=== PATIENT | female | born 1950 | race Caucasian/White ===

== ENCOUNTER 2016-07-16 19:19 | Inpatient (IN) | payer OTHER ==
[~2016-07-16] VITALS: Ht 157.5 cm; Wt 92.0 kg
[~2016-07-16 19:19] MED LIST: ACTOS30 MG PO; ADULT LOW DOSE81 M1 PO; ADVAIR HFA120 INHAL1 IH; ADVAIR HFA120 INHALA IH; ALBUTEROL SULF8.5 GM IH; ALLOPURINOL100 MG PO; ASPIR 8181 M1 PO; ASPIR-LOW81 MG PO; ASPIRIN PO; ATARAX,VISTARIL25 MG PO; BACTRIM,SEPT1 TABLET PO; CARDIZEM CD,CA180 MG PO; CARDIZEM CD,CA300 MG PO; CARDIZEM CD180 MG PO; CARDIZEM30 MG PO; CARDIZEM60 MG PO; CARDIZEM90 MG PO; CEFTIN500 MG PO; CELEXA40 MG PO; CITALOPRAM HBR40 M1 PO; CITALOPRAM HBR40 MG PO; CLEOCIN300 MG PO; COL-RITE100 M1 PO; COLACE100 MG PO; CYANOCOBALAM1000 MCG PO; DAILY VITE1 EAC1 PO; DESYREL 150 MG150 MG PO; DESYREL300 MG PO; DIGITEK125 MC2 PO; DIGOXIN125 MCG PO; DIGOXIN250 MCG PO; DILTIAZEM HCL PO; DOCUSATE SODIU100 MG PO; DOCUSIL100 MG PO; ELIMITE 5% CREA60 GM TP; ESCITALOPRAM OX20 MG PO; FELDENE20 MG PO; FEOSOL325 MG PO; FEROSUL325 MG PO; FERROUS SULFAT325 MG PO; FUROSEMIDE20 MG PO; FUROSEMIDE40 MG PO; FUROSEMIDE80 MG PO; GABAPENTIN100 MG PO; GABAPENTIN300 MG PO; GLIPIZIDE XL10 MG PO; GLIPIZIDE10 MG PO; GLUCOPHAGE1000 MG PO; GLUCOTROL XL10 MG PO; INVOKANA100 MG PO; IRON325 M1 PO; IRON325 MG PO; JANUVIA100 MG PO; JANUVIA25 M1 PO; K-DUR10 MEQ PO; LAMISIL; LASIX20 MG PO; LASIX40 MG PO; LEVAQUIN500 MG PO; LEVEMIR FL100 UNIT/1 SC; LEVEMIR100 UNIT/2 SC; LEVO-T75 MCG PO; LEVOTHYROXINE50 MCG PO; LEVOTHYROXINE75 MCG PO; LEXAPRO20 MG PO; LIDODERM 5% P1 PATCH TD; LISINOPRIL2.5 MG PO; LISINOPRIL5 MG PO; LO-DOSE ASPIRIN81 M1 PO; LO-DOSE ASPIRIN81 M2 PO; LOPRESSOR25 MG PO; LOPRESSOR50 MG PO; LOW DOSE ASPIRI81 M1 PO; METFORMIN HCL1000 M1 PO; METFORMIN HCL1000 MG PO; METFORMIN HCL500 MG PO; METOPROLOL TAR100 MG PO; METOPROLOL TART PO; METOPROLOL TART25 MG PO; METOPROLOL TART50 MG PO; MOBIC15 MG PO; MONTELUKAST SOD10 MG PO; NEURONTIN100 MG PO; NEXIUM20 MG PO; NORCO 5/3251 TABLET PO; NOVOLOG MI100 UNIT/4 SC; NOVOLOG PE100 UNITS/ SC; PANTOPRAZOLE SO40 MG PO; PIROXICAM20 MG PO; PRADAXA150 MG PO; PRAVASTATIN SOD80 MG PO; PRINIVIL5 MG PO; PROVENTIL,2.5 MG/0.5 AEROSOL; PYRIDIUM100 MG PO; REVATIO20 MG PO; SENNA PLUS TAB1 EACH PO; SENNA8.6 MG PO; SILDENAFIL20 MG PO; SIMVASTATIN20 MG PO; SINGULAIR10 MG PO; STOOL SOFTENER100 MG PO; SYNTHROID50 MCG PO; SYNTHROID75 MCG PO; TAMIFLU75 MG PO; TRAMADOL HCL50 MG PO; TRAZODONE HCL150 MG PO; TRAZODONE HCL300 MG PO; TYLENOL EXTRA500 MG PO; TYLENOL REGULA325 MG PO; VALIUM2 MG PO; VENTOLIN HFA18 GM IH; ZESTRIL,PRINIV2.5 MG PO; ZESTRIL2.5 MG; ZESTRIL2.5 MG PO; ZOCOR20 MG PO; lisinopril PO
[2016-07-16 20:27] LABS: HEMATOCRIT 38.5 % (36.0-46.0); MCH 31.1 PG (29.0-34.0); MCHC 33.8 G/DL (30.0-36.0); MCV 92.1 FL (83-99); MEAN PLAT.VOLUME 10.9 uM^3 (9.5-12.4); PLATELET COUNT 240 K/uL (156-360); RBC DIS.WIDTH-CV 15.8 % (11.8-14.6); RBC DIS.WIDTH-SD 50.7 % (39-53); RED BLOOD COUNT 4.18 M/uL (3.80-5.20); WHITE BLOOD COUNT 12.2 K/uL (4.1-10.2)
[2016-07-16 20:27] LABS: POTASSIUM 4.7 mEq/L (3.7-5.4)
[2016-07-17 01:16] LABS: TROP-I INTERPRETATION NEGATIVE; TROPONIN-I < 0.01 ng/mL (0.0-0.30)
[2016-07-17 02:01] LABS: CHLORIDE 107 mEq/L (99-109); POTASSIUM 5.2 mEq/L (3.7-5.4); SODIUM 138 mEq/L (136-147)
[2016-07-17 02:03] LABS: GLUCOSE 191 mg/dL (70-99)
[2016-07-17 02:05] LABS: ANION GAP 11 MEQ/L (2-14); TOTAL BILIRUBIN 0.9 mg/dL (0.0-1.0)
[2016-07-17 02:07] LABS: ALKALINE PHOSPHATASE 69 IU/L (3-129); GFR ESTIMATE (CALCULATED) 53 mL/min/
[2016-07-17 02:08] LABS: UREA NITROGEN (BUN) 17 mg/dL (9-23)
[2016-07-17 02:16] LABS: DIGOXIN 1.4 ng/mL (0.8-2.0)
[2016-07-17 03:56] VITALS: BP 150/78
[2016-07-17 04:16] VITALS: BP 150/78
[2016-07-17] MEDS ORDERED: DIGOXIN250 MCG PO (05:18)
[2016-07-17] MEDS ORDERED: CARDIZEM CD,CA180 MG PO (05:18)
[2016-07-17] MEDS ORDERED: ASPIR-LOW81 MG PO (05:21)
[2016-07-17] MEDS ORDERED: MONTELUKAST SOD10 MG PO (05:21)
[2016-07-17] MEDS ORDERED: PRAVASTATIN SOD80 MG PO (05:22)
[2016-07-17] MEDS ORDERED: SENNA LAXATIVE8.6 MG PO (05:22)
[2016-07-17] MEDS ORDERED: PRADAXA150 MG PO (05:23)
[2016-07-17] MEDS ORDERED: PANTOPRAZOLE SO40 MG PO (05:23)
[2016-07-17] MEDS ORDERED: DESYREL 150 MG150 MG PO (05:24)
[2016-07-17] MEDS ORDERED: DOCUSATE SODIU100 MG PO (05:28)
[2016-07-17 08:07] LABS: POINT-OF-CARE METER ID UU14174216; POINT-OF-CARE USER ID NUTSLF44
[2016-07-17] MEDS ORDERED: GABAPENTIN100 MG PO (09:20)
[2016-07-17] MEDS ORDERED: LEVO-T50 MCG PO (09:21)
[2016-07-17 11:46] LABS: POINT-OF-CARE METER ID UU14174216; POINT-OF-CARE USER ID NUTSLF44
[2016-07-17 16:26] LABS: POINT-OF-CARE METER ID UU14174216
[2016-07-17 16:47] LABS: TROP-I INTERPRETATION NEGATIVE; TROPONIN-I < 0.01 ng/mL (0.0-0.30)
[2016-07-17 20:42] VITALS: BP 131/76
[2016-07-17 21:58] LABS: TROP-I INTERPRETATION NEGATIVE; TROPONIN-I < 0.01 ng/mL (0.0-0.30)
[2016-07-17 23:27] VITALS: BP 164/88
[2016-07-18 06:49] LABS: HEMATOCRIT 37.5 % (36.0-46.0); MCH 30.7 PG (29.0-34.0); MCHC 32.5 G/DL (30.0-36.0); MCV 94.2 FL (83-99); MEAN PLAT.VOLUME 10.7 uM^3 (9.5-12.4); PLATELET COUNT 203 K/uL (156-360); RBC DIS.WIDTH-CV 15.5 % (11.8-14.6); RBC DIS.WIDTH-SD 50.5 % (39-53); RED BLOOD COUNT 3.98 M/uL (3.80-5.20); WHITE BLOOD COUNT 10.7 K/uL (4.1-10.2)
[2016-07-18 07:11] LABS: TROP-I INTERPRETATION NEGATIVE; TROPONIN-I < 0.01 ng/mL (0.0-0.30)
[2016-07-18 07:36] LABS: ANION GAP 10 MEQ/L (2-14); CHLORIDE 97 MEQ/L (99-109); GFR ESTIMATE (CALCULATED) 40 mL/min/; GLUCOSE 261 mg/dL (70-99); POTASSIUM 4.3 MEQ/L (3.7-5.4); SAMPLE HEMOLYSIS CHECK 0; SAMPLE ICTERIC CHECK 0; SAMPLE LIPEMIA CHECK 0; SODIUM 136 MEQ/L (136-147); UREA NITROGEN (BUN) 22 mg/dL (9-23)
[2016-07-18 08:22] VITALS: BP 135/60
[2016-07-18 11:21] LABS: POINT-OF-CARE METER ID UU14174216
[2016-07-18 12:01] VITALS: BP 116/56
[2016-07-18 15:17] VITALS: BP 135/72
[2016-07-18 16:01] LABS: ADD MIUA? NO; BILIRUBIN NEGATIVE; BLOOD NEGATIVE; COLOR YELLOW ((YELLOW)); GLUCOSE (STRIP) 100; KETONES NEGATIVE; LEUKOCYTES NEGATIVE; NITRITE NEGATIVE; PROTEIN (STRIP) NEGATIVE; SPECIFIC GRAVITY 1.006 (1.000-1.030); UROBILINOGEN 0.2 MG/DL (0.2-1.0)
[2016-07-18 17:30] LABS: UCUL ADDED? NO
[2016-07-18 19:22] VITALS: BP 141/67
[2016-07-18 23:59] VITALS: BP 135/61
[2016-07-19 03:16] VITALS: BP 141/67
[2016-07-19 08:24] VITALS: BP 134/82
[2016-07-19 08:29] LABS: HEMATOCRIT 38.8 % (36.0-46.0); MCH 29.7 PG (29.0-34.0); MCHC 31.7 G/DL (30.0-36.0); MCV 93.7 FL (83-99); MEAN PLAT.VOLUME 10.7 uM^3 (9.5-12.4); PLATELET COUNT 222 K/uL (156-360); RBC DIS.WIDTH-CV 15.4 % (11.8-14.6); RED BLOOD COUNT 4.14 M/uL (3.80-5.20); WHITE BLOOD COUNT 11.1 K/uL (4.1-10.2)
[2016-07-19 08:52] LABS: ANION GAP 13 MEQ/L (2-14); CHLORIDE 92 MEQ/L (99-109); GFR ESTIMATE (CALCULATED) 48 mL/min/; GLUCOSE 256 mg/dL (70-99); SAMPLE HEMOLYSIS CHECK 0; SAMPLE ICTERIC CHECK 0; SAMPLE LIPEMIA CHECK 0; SODIUM 137 MEQ/L (136-147); UREA NITROGEN (BUN) 20 mg/dL (9-23)
[2016-07-19 11:31] VITALS: BP 157/60
[2016-07-19] MEDS ORDERED: ALLOPURINOL100 MG PO (12:05)
[2016-07-19] MEDS ORDERED: CEFDINIR300 MG PO (12:05)
[2016-07-19] MEDS ORDERED: FUROSEMIDE80 MG PO (12:05)
[2016-07-19 16:30] LABS: POINT-OF-CARE METER ID UU13113781
[2016-07-19 17:32] VITALS: BP 144/60
== END 2016-07-19 17:32 | disposition home health service (06) | DRG 190 ==
LOC: EME 19:19 → EDOF 23:57 → EME 23:57 → 4EAST 23:57 → EDOF 07-17 00:05 → 4EAST 07-17 03:44
PROVIDERS: Emergency Medicine; Hospitalist; Internal Medicine; Internal Medicine Cardiovascular Disease; Nurse Practitioner Adult Health; Physician Assistant
DX: J44.0 Chronic obstructive pulmonary disease with (acute) lower respiratory infection (principal); J18.9 Pneumonia, unspecified organism; J96.21 Acute and chronic respiratory failure with hypoxia; J98.11 Atelectasis; J44.1 Chronic obstructive pulmonary disease with (acute) exacerbation; I48.2 Chronic atrial fibrillation; I50.9 Heart failure, unspecified; Z99.81 Dependence on supplemental oxygen; I27.2 Other secondary pulmonary hypertension; Z95.2 Presence of prosthetic heart valve; E03.9 Hypothyroidism, unspecified; K21.9 Gastro-esophageal reflux disease without esophagitis; E11.65 Type 2 diabetes mellitus with hyperglycemia; E66.01 Morbid (severe) obesity due to excess calories; G47.33 Obstructive sleep apnea (adult) (pediatric); F31.9 Bipolar disorder, unspecified; I08.2 Rheumatic disorders of both aortic and tricuspid valves; Z68.37 Body mass index [BMI] 37.0-37.9, adult
CPT/HCPCS: 71020; 71250; 80047; 80048; 80053; 80162; 81003; 82948; 83880; 84484; 85027; 87040; 93005; 94640; 94640 76; 94760; 94799; 99202; 99281; 99285; J0456; J0692; J1815; J1940; J3370; J7050

== ENCOUNTER 2016-08-07 18:16 | Inpatient (IN) | payer OTHER ==
[~2016-08-07] VITALS: Ht 152.4 cm; Wt 83.5 kg
[~2016-08-07 18:16] MED LIST changes: +CEFDINIR300 MG PO; +LEVO-T50 MCG PO; +SENNA LAXATIVE8.6 MG PO
[2016-08-07 19:12] LABS: HEMATOCRIT 39.9 % (36.0-46.0); MCH 30.5 PG (29.0-34.0); MCHC 33.8 G/DL (30.0-36.0); MCV 90.3 FL (83-99); MEAN PLAT.VOLUME 11.6 uM^3 (9.5-12.4); PLATELET COUNT 196 K/uL (156-360); RBC DIS.WIDTH-SD 42.2 % (39-53); RED BLOOD COUNT 4.42 M/uL (3.80-5.20); WHITE BLOOD COUNT 10.8 K/uL (4.1-10.2)
[2016-08-07 19:20] LABS: CHLORIDE 94 mEq/L (99-109); POTASSIUM 3.8 mEq/L (3.7-5.4); SODIUM 135 mEq/L (136-147)
[2016-08-07 19:22] LABS: GLUCOSE 351 mg/dL (70-99)
[2016-08-07 19:23] LABS: ANION GAP 11 MEQ/L (2-14)
[2016-08-07 19:26] LABS: GFR ESTIMATE (CALCULATED) 40 mL/min/; UREA NITROGEN (BUN) 17 mg/dL (9-23)
[2016-08-07 19:50] LABS: ADD MIUA? NO; BILIRUBIN NEGATIVE; BLOOD NEGATIVE; COLOR YELLOW ((YELLOW)); GLUCOSE (STRIP) 250; KETONES NEGATIVE; LEUKOCYTES NEGATIVE; NITRITE NEGATIVE; PH, URINE 7.5 (5-8); PROTEIN (STRIP) NEGATIVE; SPECIFIC GRAVITY 1.013 (1.000-1.030); UCUL ADDED? NO; UROBILINOGEN 0.2 MG/DL (0.2-1.0)
[2016-08-08 01:09] VITALS: BP 138/63
[2016-08-08 03:24] LABS: HDL CHOLESTEROL 31 MG/DL (Desirable>=50); NON-HDL CHOLESTEROL 170 mg/dL (Desirable<160); TOTAL CHOLESTEROL 201 mg/dL (Desirable<200); TRIGLYCERIDES 554 MG/DL (Normal: <150)
[2016-08-08 03:59] LABS: DIGOXIN 0.4 ng/mL (0.8-2.0)
[2016-08-08 04:05] VITALS: BP 110/86
[2016-08-08 06:15] LABS: MCH 30.2 PG (29.0-34.0); MCHC 32.6 G/DL (30.0-36.0); MCV 92.5 FL (83-99); MEAN PLAT.VOLUME 12.1 uM^3 (9.5-12.4); PLATELET COUNT 206 K/uL (156-360); RBC DIS.WIDTH-CV 13.4 % (11.8-14.6); RBC DIS.WIDTH-SD 45.1 % (39-53); RED BLOOD COUNT 4.11 M/uL (3.80-5.20); WHITE BLOOD COUNT 10.5 K/uL (4.1-10.2)
[2016-08-08 06:43] LABS: ANION GAP 9 MEQ/L (2-14); CHLORIDE 93 MEQ/L (99-109); GFR ESTIMATE (CALCULATED) 53 mL/min/; GLUCOSE 368 mg/dL (70-99); POTASSIUM 3.7 MEQ/L (3.7-5.4); SAMPLE HEMOLYSIS CHECK 0; SAMPLE ICTERIC CHECK 0; SAMPLE LIPEMIA CHECK 0; SODIUM 134 MEQ/L (136-147); UREA NITROGEN (BUN) 17 mg/dL (9-23)
[2016-08-08 07:06] VITALS: BP 108/64
[2016-08-08 07:29] LABS: Estimated Average Glucose 255 mg/dL (70-123); HEMOGLOBIN A1c (GLYCOHEMOGLOB) 10.5 % HGB (Below 5.7)
[2016-08-08 11:22] VITALS: BP 127/68
[2016-08-08 15:23] VITALS: BP 115/57
[2016-08-08 19:23] VITALS: BP 110/67
[2016-08-09] VITALS (7 sets, daily range): BP systolic 104–128; BP diastolic 57–73
[2016-08-09] MEDS ORDERED: DIGITEK250 MC2 PO (09:29)
[2016-08-09] MEDS ORDERED: MONTELUKAST SOD10 MG PO (09:30)
[2016-08-09] MEDS ORDERED: ASPIR 8181 M1 PO (09:30)
[2016-08-09] MEDS ORDERED: CARDIZEM CD,CA180 MG PO (09:30)
[2016-08-09] MEDS ORDERED: PROTONIX40 MG PO (09:31)
[2016-08-09] MEDS ORDERED: PRAVASTATIN SOD80 MG PO (09:31)
[2016-08-09] MEDS ORDERED: DESYREL 150 MG150 MG PO (09:31)
[2016-08-09] MEDS ORDERED: COLACE100 MG PO (09:32)
[2016-08-09] MEDS ORDERED: GABAPENTIN100 MG PO (09:32)
[2016-08-09] MEDS ORDERED: SENNA8.6 MG PO (09:32)
[2016-08-09] MEDS ORDERED: FUROSEMIDE80 MG PO (09:33)
[2016-08-09] MEDS ORDERED: LEVO-T75 MCG PO (09:33)
[2016-08-09] MEDS ORDERED: ALLOPURINOL100 MG PO (09:34)
[2016-08-09] MEDS ORDERED: NOVOLOG PE100 UNITS/ SC (09:34)
[2016-08-09] MEDS ORDERED: LEVEMIR FL100 UNIT/1 SC (09:34)
[2016-08-10 03:41] VITALS: BP 121/70
[2016-08-10 07:37] VITALS: BP 127/65
[2016-08-10 16:20] VITALS: BP 132/66
[2016-08-11] VITALS: BP 131/67
[2016-08-11 08:32] VITALS: BP 126/63
[2016-08-11] MEDS ORDERED: LEVEMIR100 UNIT/2 SC (11:18)
[2016-08-11] MEDS ORDERED: PRADAXA150 MG PO (11:18)
[2016-08-11] MEDS ORDERED: FUROSEMIDE40 MG PO (11:18)
[2016-08-11 12:24] LABS: GLUCOSE 361 mg/dL (70-99)
== END 2016-08-11 14:03 | DRG 552 ==
LOC: EME → EDBD 18:16 → EME 18:16 → 5SOUTH 23:19 → EDOF 23:19 → 5SOUTH 08-08 00:35
PROVIDERS: Emergency Medicine; Hospitalist; Nurse Practitioner Adult Health
DX: M47.896 Other spondylosis, lumbar region (principal); I50.32 Chronic diastolic (congestive) heart failure; R42 Dizziness and giddiness; R26.2 Difficulty in walking, not elsewhere classified; S39.012A Strain of muscle, fascia and tendon of lower back, initial encounter; W19.XXXA Unspecified fall, initial encounter; I27.2 Other secondary pulmonary hypertension; J44.9 Chronic obstructive pulmonary disease, unspecified; R09.02 Hypoxemia; I10 Essential (primary) hypertension; I48.91 Unspecified atrial fibrillation; E03.9 Hypothyroidism, unspecified; E11.9 Type 2 diabetes mellitus without complications; F31.9 Bipolar disorder, unspecified; E66.9 Obesity, unspecified; Z99.81 Dependence on supplemental oxygen; Z68.35 Body mass index [BMI] 35.0-35.9, adult; Z95.2 Presence of prosthetic heart valve; Z79.01 Long term (current) use of anticoagulants; Z79.82 Long term (current) use of aspirin; Z88.0 Allergy status to penicillin; Z87.891 Personal history of nicotine dependence; Z88.5 Allergy status to narcotic agent
CPT/HCPCS: 70450; 70551; 71020; 72148; 80048; 80061; 80162; 81003; 82948; 83036; 84999; 85027; 93005; 94799; 99281; 99285; J1815

== ENCOUNTER 2016-08-24 22:42 | Inpatient (IN) | payer OTHER ==
[~2016-08-24] VITALS: Ht 157.5 cm; Wt 83.5 kg
[~2016-08-24 22:42] MED LIST changes: +DIGITEK250 MC2 PO; +PROTONIX40 MG PO
[2016-08-24 23:09] LABS: BASOPHIL COUNT 0.1 K/uL (0-0.1); EOSINOPHIL (%) 1.4 % (0-5); EOSINOPHIL COUNT 0.2 K/uL (0-0.3); HEMATOCRIT 41.7 % (36.0-46.0); IMMATURE GRANULOCYTE (%) 0.5 % (0.0-0.7); IMMATURE GRANULOCYTE COUNT 0.6 K/uL; LYMPHOCYTE COUNT 1.5 K/uL (1.0-2.8); MCH 30.9 PG (29.0-34.0); MCHC 34.5 G/DL (30.0-36.0); MCV 89.5 FL (83-99); MEAN PLAT.VOLUME 11.1 uM^3 (9.5-12.4); MONOCYTE (%) 7.4 % (3-12); MONOCYTE COUNT 0.9 K/uL (0-0.8); NEUTROPHIL (%) 77.6 % (45-76); NEUTROPHIL COUNT 9.5 K/uL (1.8-6.4); PLATELET COUNT 228 K/uL (156-360); RBC DIS.WIDTH-CV 13.4 % (11.8-14.6); RBC DIS.WIDTH-SD 42.9 % (39-53); RED BLOOD COUNT 4.66 M/uL (3.80-5.20); WHITE BLOOD COUNT 12.3 K/uL (4.1-10.2)
[2016-08-24 23:14] LABS: CHLORIDE 92 mEq/L (99-109); INTER. NORMALIZED RATIO 1.3; POTASSIUM 3.7 mEq/L (3.7-5.4); PROTHROMBIN TIME 13.4 (9.2-11.2); PTT 35.5 (25-32); SODIUM 137 mEq/L (136-147)
[2016-08-24 23:17] LABS: GLUCOSE 334 mg/dL (70-99)
[2016-08-24 23:18] LABS: ANION GAP 14 MEQ/L (2-14)
[2016-08-24 23:19] LABS: TOTAL BILIRUBIN 0.7 mg/dL (0.0-1.0)
[2016-08-24 23:20] LABS: ALKALINE PHOSPHATASE 97 IU/L (3-129); GFR ESTIMATE (CALCULATED) 37 mL/min/
[2016-08-24 23:21] LABS: UREA NITROGEN (BUN) 28 mg/dL (9-23)
[2016-08-24 23:24] LABS: LIPASE 21 U/L (1.0-51.0); TROP-I INTERPRETATION NEGATIVE; TROPONIN-I 0.04 ng/mL (0.0-0.30)
[2016-08-24 23:30] LABS: DIGOXIN 1.7 ng/mL (0.8-2.0)
[2016-08-25] MEDS ORDERED: GABAPENTIN300 MG PO (00:27)
[2016-08-25] MEDS ORDERED: FERROUS SULFAT325 MG PO (00:28)
[2016-08-25 01:10] LABS: CARBON DIOXIDE (BICARBONATE) 37.7 MEQ/L (20-31)
[2016-08-25 01:15] LABS: POINT-OF-CARE METER ID UU14100415
[2016-08-25 01:23] LABS: MAGNESIUM 1.6 mg/dL (1.3-2.7)
[2016-08-25 01:40] VITALS: BP 147/65
[2016-08-25 07:15] LABS: TROP-I INTERPRETATION NEGATIVE; TROPONIN-I 0.04 ng/mL (0.0-0.30)
[2016-08-25 10:26] LABS: HDL CHOLESTEROL 28 MG/DL (Desirable>=50); NON-HDL CHOLESTEROL 153 mg/dL (Desirable<160); TOTAL CHOLESTEROL 181 mg/dL (Desirable<200); TRIGLYCERIDES 542 MG/DL (Normal: <150)
[2016-08-25 11:15] VITALS: BP 124/56
[2016-08-25 12:23] LABS: TROP-I INTERPRETATION NEGATIVE; TROPONIN-I 0.03 ng/mL (0.0-0.30)
[2016-08-25 16:10] VITALS: BP 125/58
[2016-08-25 19:55] VITALS: BP 132/99
[2016-08-25 20:56] LABS: POINT-OF-CARE METER ID UU14174216
[2016-08-26] VITALS (7 sets, daily range): BP systolic 119–146; BP diastolic 58–74
[2016-08-26 07:00] LABS: EOSINOPHIL (%) 3.5 % (0-5); EOSINOPHIL COUNT 0.4 K/uL (0-0.3); HEMATOCRIT 38.2 % (36.0-46.0); IMMATURE GRANULOCYTE (%) 0.6 % (0.0-0.7); IMMATURE GRANULOCYTE COUNT 0.1 K/uL; LYMPHOCYTE COUNT 1.9 K/uL (1.0-2.8); MCH 31.5 PG (29.0-34.0); MCHC 34.3 G/DL (30.0-36.0); MCV 91.8 FL (83-99); MEAN PLAT.VOLUME 11.9 uM^3 (9.5-12.4); MONOCYTE (%) 7.5 % (3-12); MONOCYTE COUNT 0.8 K/uL (0-0.8); NEUTROPHIL (%) 70.6 % (45-76); NEUTROPHIL COUNT 7.6 K/uL (1.8-6.4); PLATELET COUNT 191 K/uL (156-360); RBC DIS.WIDTH-CV 13.8 % (11.8-14.6); RBC DIS.WIDTH-SD 45.7 % (39-53); RED BLOOD COUNT 4.16 M/uL (3.80-5.20); WHITE BLOOD COUNT 10.8 K/uL (4.1-10.2)
[2016-08-26 07:30] LABS: ANION GAP 8 MEQ/L (2-14); CHLORIDE 96 MEQ/L (99-109); GFR ESTIMATE (CALCULATED) 48 mL/min/; POTASSIUM 3.9 MEQ/L (3.7-5.4); SAMPLE HEMOLYSIS CHECK 0; SAMPLE ICTERIC CHECK 0; SAMPLE LIPEMIA CHECK 0; SODIUM 135 MEQ/L (136-147); UREA NITROGEN (BUN) 22 mg/dL (9-23)
[2016-08-26 07:34] LABS: GLUCOSE 166 mg/dL (70-99)
[2016-08-26 08:48] LABS: POINT-OF-CARE METER ID UU14174216
[2016-08-26 11:51] LABS: POINT-OF-CARE METER ID UU13113698
[2016-08-26 16:20] LABS: POINT-OF-CARE METER ID UU14174216
[2016-08-26 21:17] LABS: POINT-OF-CARE METER ID UU14174216
[2016-08-27 03:00] VITALS: BP 145/67
[2016-08-27 06:32] LABS: EOSINOPHIL (%) 2.4 % (0-5); EOSINOPHIL COUNT 0.3 K/uL (0-0.3); HEMATOCRIT 38.1 % (36.0-46.0); IMMATURE GRANULOCYTE (%) 0.7 % (0.0-0.7); IMMATURE GRANULOCYTE COUNT 0.1 K/uL; MCHC 34.4 G/DL (30.0-36.0); MCV 92.9 FL (83-99); MEAN PLAT.VOLUME 11.6 uM^3 (9.5-12.4); MONOCYTE (%) 5.8 % (3-12); MONOCYTE COUNT 0.7 K/uL (0-0.8); NEUTROPHIL (%) 74.7 % (45-76); PLATELET COUNT 190 K/uL (156-360); RBC DIS.WIDTH-CV 13.8 % (11.8-14.6); RBC DIS.WIDTH-SD 46.8 % (39-53); WHITE BLOOD COUNT 12.1 K/uL (4.1-10.2)
[2016-08-27 07:21] LABS: ANION GAP 10 MEQ/L (2-14); CHLORIDE 98 MEQ/L (99-109); GFR ESTIMATE (CALCULATED) 48 mL/min/; POTASSIUM 4.2 MEQ/L (3.7-5.4); SAMPLE HEMOLYSIS CHECK 0; SAMPLE ICTERIC CHECK 0; SAMPLE LIPEMIA CHECK 0; SODIUM 137 MEQ/L (136-147); UREA NITROGEN (BUN) 18 mg/dL (9-23)
[2016-08-27 07:24] LABS: GLUCOSE 120 mg/dL (70-99)
[2016-08-27 07:53] LABS: POINT-OF-CARE METER ID UU13113781
[2016-08-27 07:55] VITALS: BP 144/63
[2016-08-27 11:28] LABS: POINT-OF-CARE METER ID UU13113781
[2016-08-27 12:00] VITALS: BP 164/73
[2016-08-27 15:19] VITALS: BP 140/104
[2016-08-27] MEDS ORDERED: CARVEDILOL3.125 MG PO (15:51)
[2016-08-27] MEDS ORDERED: ALBUTEROL2.5 MG/0.5 AEROSOL (15:51)
[2016-08-27] MEDS ORDERED: NOVOLOG PE100 UNITS/ SC (15:52)
[2016-08-27 21:12] LABS: POINT-OF-CARE METER ID UU13113781
== END 2016-08-27 22:18 | DRG 682 ==
LOC: EME → EDBD 22:42 → EDOF 08-25 00:30 → 4EAST 08-25 00:30
PROVIDERS: Emergency Medicine; Internal Medicine; Physician Assistant Medical
DX: N17.9 Acute kidney failure, unspecified (principal); G93.40 Encephalopathy, unspecified; J96.10 Chronic respiratory failure, unspecified whether with hypoxia or hypercapnia; I48.2 Chronic atrial fibrillation; I50.32 Chronic diastolic (congestive) heart failure; I27.2 Other secondary pulmonary hypertension; E11.22 Type 2 diabetes mellitus with diabetic chronic kidney disease; E11.65 Type 2 diabetes mellitus with hyperglycemia; I12.9 Hypertensive chronic kidney disease with stage 1 through stage 4 chronic kidney disease, or unspecified chronic kidney disease; N18.3 Chronic kidney disease, stage 3 (moderate); J44.9 Chronic obstructive pulmonary disease, unspecified; Z99.81 Dependence on supplemental oxygen; M47.896 Other spondylosis, lumbar region; E66.9 Obesity, unspecified; R94.31 Abnormal electrocardiogram [ECG] [EKG]; E78.5 Hyperlipidemia, unspecified; K21.9 Gastro-esophageal reflux disease without esophagitis; E03.9 Hypothyroidism, unspecified; Z91.14 Patient's other noncompliance with medication regimen; I51.7 Cardiomegaly; Z68.33 Body mass index [BMI] 33.0-33.9, adult; Z91.81 History of falling; Z79.4 Long term (current) use of insulin; Z95.2 Presence of prosthetic heart valve
CPT/HCPCS: 70450; 71020; 80048; 80053; 80061; 80162; 81003; 82010; 82803; 82948; 83690; 83735; 83880; 84439; 84443; 84484; 84999; 85025; 85027; 85610; 85730; 93005; 97530 GO; 99281; 99285; J1815; J1885; J7030

== ENCOUNTER 2016-10-08 23:59 | Emergency (ER) | payer OTHER ==
[~2016-10-08] VITALS: Ht 165.1 cm; Wt 81.8 kg
[~2016-10-08 23:59] MED LIST changes: +ALBUTEROL2.5 MG/0.5 AEROSOL; +CARVEDILOL3.125 MG PO
[2016-10-09] MEDS ORDERED: PERCOCET 5/31 TABLET PO (01:44)
[2016-10-09] MEDS ORDERED: ALLOPURINOL100 MG PO (01:44)
[2016-10-09 02:19] VITALS: BP 144/68
== END 2016-10-09 02:20 | disposition home or self-care (01) ==
LOC: EME 23:59 → EXP 23:59
DX: M79.671 Pain in right foot (principal); M79.672 Pain in left foot
CPT/HCPCS: 99281; 99283

== ENCOUNTER 2016-10-23 21:20 | Inpatient (IN) | payer OTHER ==
[~2016-10-23] VITALS: Ht 154.9 cm; Wt 95.0 kg
[~2016-10-23 21:20] MED LIST changes: +PERCOCET 5/31 TABLET PO
[2016-10-23 21:56] LABS: BASOPHIL COUNT 0.1 K/uL (0-0.1); EOSINOPHIL COUNT 0.1 K/uL (0-0.3); HEMATOCRIT 37.3 % (36.0-46.0); IMMATURE GRANULOCYTE (%) 0.6 % (0.0-0.7); IMMATURE GRANULOCYTE COUNT 0.1 K/uL; INSTRUMENT ABS NEUTROPHIL CT 8.8 K/uL; LYMPHOCYTE COUNT 1.5 K/uL (1.0-2.8); MCH 30.5 PG (29.0-34.0); MCHC 32.2 G/DL (30.0-36.0); MCV 94.7 FL (83-99); MEAN PLAT.VOLUME 10.6 uM^3 (9.5-12.4); MONOCYTE (%) 5.3 % (3-12); MONOCYTE COUNT 0.6 K/uL (0-0.8); NEUTROPHIL (%) 79.2 % (45-76); NEUTROPHIL COUNT 8.8 K/uL (1.8-6.4); PLATELET COUNT 229 K/uL (156-360); RBC DIS.WIDTH-CV 14.5 % (11.8-14.6); RBC DIS.WIDTH-SD 49.8 % (39-53); RED BLOOD COUNT 3.94 M/uL (3.80-5.20); WHITE BLOOD COUNT 11.2 K/uL (4.1-10.2)
[2016-10-23 22:02] LABS: CARBON DIOXIDE (BICARBONATE) 34.1 MEQ/L (20-31)
[2016-10-23 22:05] LABS: CHLORIDE 97 mEq/L (99-109); POTASSIUM 3.2 mEq/L (3.7-5.4); SODIUM 137 mEq/L (136-147)
[2016-10-23 22:07] LABS: GLUCOSE 319 mg/dL (70-99)
[2016-10-23 22:08] LABS: ANION GAP 13 MEQ/L (2-14)
[2016-10-23 22:11] LABS: GFR ESTIMATE (CALCULATED) 40 mL/min/
[2016-10-23 22:12] LABS: UREA NITROGEN (BUN) 20 mg/dL (9-23)
[2016-10-23 22:17] LABS: TROP-I INTERPRETATION NEGATIVE; TROPONIN-I < 0.01 ng/mL (0.0-0.30)
[2016-10-23] MEDS ORDERED: LIPITOR20 MG PO (23:56)
[2016-10-23] MEDS ORDERED: LEVEMIR100 UNIT/2 SC (23:59)
[2016-10-24] MEDS ORDERED: LASIX80 MG PO (00:01)
[2016-10-24] MEDS ORDERED: GABAPENTIN300 MG PO (00:03)
[2016-10-24 01:57] LABS: DIGOXIN < 0.3 ng/mL (0.8-2.0)
[2016-10-24 02:26] VITALS: BP 110/63
[2016-10-24 04:23] LABS: TROP-I INTERPRETATION NEGATIVE; TROPONIN-I 0.02 ng/mL (0.0-0.30)
[2016-10-24 07:21] VITALS: BP 118/56
[2016-10-24 10:10] LABS: HEMATOCRIT 37.5 % (36.0-46.0); MCH 30.8 PG (29.0-34.0); MCV 96.2 FL (83-99); MEAN PLAT.VOLUME 10.7 uM^3 (9.5-12.4); PLATELET COUNT 223 K/uL (156-360); RBC DIS.WIDTH-CV 14.6 % (11.8-14.6); RBC DIS.WIDTH-SD 51.3 % (39-53); WHITE BLOOD COUNT 11.1 K/uL (4.1-10.2)
[2016-10-24 10:12] LABS: ANION GAP 10 MEQ/L (2-14); CHLORIDE 97 MEQ/L (99-109); GFR ESTIMATE (CALCULATED) 48 mL/min/; GLUCOSE 214 mg/dL (70-99); SAMPLE HEMOLYSIS CHECK 0; SAMPLE ICTERIC CHECK 0; SAMPLE LIPEMIA CHECK 0; SODIUM 137 MEQ/L (136-147); TROP-I INTERPRETATION NEGATIVE; TROPONIN-I 0.01 ng/mL (0.0-0.30); UREA NITROGEN (BUN) 18 mg/dL (9-23)
[2016-10-24 10:58] VITALS: BP 99/64
[2016-10-24 12:29] LABS: POINT-OF-CARE METER ID UU13113700
[2016-10-24 15:03] VITALS: BP 120/65
[2016-10-24 19:48] VITALS: BP 99/63
[2016-10-24 22:05] LABS: POINT-OF-CARE METER ID UU13113700
[2016-10-24 23:49] VITALS: BP 93/52
[2016-10-25 07:15] VITALS: BP 110/62
[2016-10-25 08:16] LABS: POINT-OF-CARE METER ID UU14162513
[2016-10-25 11:52] VITALS: BP 113/57
[2016-10-25 12:28] LABS: POINT-OF-CARE METER ID UU14162513
[2016-10-25 16:11] VITALS: BP 121/57
[2016-10-25 17:39] LABS: POINT-OF-CARE METER ID UU13113831
[2016-10-25 19:00] VITALS: BP 119/58
[2016-10-25 21:52] LABS: POINT-OF-CARE METER ID UU13113831
[2016-10-26 04:17] VITALS: BP 130/59
[2016-10-26 08:09] LABS: POINT-OF-CARE METER ID UU14162513
[2016-10-26 09:11] VITALS: BP 122/77
[2016-10-26 12:01] VITALS: BP 126/66
[2016-10-26 12:31] LABS: POINT-OF-CARE METER ID UU14162513
== END 2016-10-26 13:27 | disposition home health service (06) | DRG 309 ==
LOC: EME 21:20 → EDOF 10-24 00:16 → 5WEST 10-24 00:16
PROVIDERS: Emergency Medicine; Hospitalist; Internal Medicine
DX: I48.2 Chronic atrial fibrillation (principal); J44.1 Chronic obstructive pulmonary disease with (acute) exacerbation; E11.65 Type 2 diabetes mellitus with hyperglycemia; I50.9 Heart failure, unspecified; I51.7 Cardiomegaly; F81.9 Developmental disorder of scholastic skills, unspecified; I36.1 Nonrheumatic tricuspid (valve) insufficiency; E78.5 Hyperlipidemia, unspecified; E78.00 Pure hypercholesterolemia, unspecified; E87.6 Hypokalemia; I25.10 Atherosclerotic heart disease of native coronary artery without angina pectoris; I95.9 Hypotension, unspecified; I10 Essential (primary) hypertension; I34.0 Nonrheumatic mitral (valve) insufficiency; I48.92 Unspecified atrial flutter; K21.9 Gastro-esophageal reflux disease without esophagitis; E03.9 Hypothyroidism, unspecified; G47.00 Insomnia, unspecified; E66.9 Obesity, unspecified; I27.2 Other secondary pulmonary hypertension; Z60.2 Problems related to living alone; Z82.0 Family history of epilepsy and other diseases of the nervous system; Z79.01 Long term (current) use of anticoagulants; Z88.0 Allergy status to penicillin; Z68.39 Body mass index [BMI] 39.0-39.9, adult; Z91.128 Patient's intentional underdosing of medication regimen for other reason; Z79.4 Long term (current) use of insulin; Z95.2 Presence of prosthetic heart valve
CPT/HCPCS: 71010; 80048; 80162; 82803; 82948; 83880; 84484; 85025; 85027; 93005; 94640; 94640 76; 94760; 99202; 99281; 99285; G8978 GP CJ; G8979 GP CI; G8987 GO CI; G8988 GO CH; J1815; J1940

== ENCOUNTER 2016-11-01 22:02 | Emergency (ER) | payer OTHER ==
[~2016-11-01] VITALS: Ht 154.9 cm; Wt 97.2 kg
[~2016-11-01 22:02] MED LIST changes: +LASIX80 MG PO; +LIPITOR20 MG PO
[2016-11-01 23:30] LABS: HEMATOCRIT 40.4 % (36.0-46.0); MCH 30.8 PG (29.0-34.0); MCHC 31.4 G/DL (30.0-36.0); MCV 98.1 FL (83-99); MEAN PLAT.VOLUME 10.5 uM^3 (9.5-12.4); PLATELET COUNT 217 K/uL (156-360); RBC DIS.WIDTH-CV 14.6 % (11.8-14.6); RBC DIS.WIDTH-SD 52.7 % (39-53); RED BLOOD COUNT 4.12 M/uL (3.80-5.20); WHITE BLOOD COUNT 12.4 K/uL (4.1-10.2)
[2016-11-01 23:43] LABS: CHLORIDE 102 mEq/L (99-109); POTASSIUM 4.6 mEq/L (3.7-5.4); SODIUM 139 mEq/L (136-147)
[2016-11-01 23:45] LABS: GLUCOSE 353 mg/dL (70-99)
[2016-11-01 23:47] LABS: ANION GAP 13 MEQ/L (2-14)
[2016-11-01 23:49] LABS: GFR ESTIMATE (CALCULATED) 44 mL/min/
[2016-11-01 23:50] LABS: UREA NITROGEN (BUN) 15 mg/dL (9-23)
[2016-11-02 00:15] VITALS: BP 97/72
== END 2016-11-02 00:42 | disposition home or self-care (01) ==
LOC: EME 22:02
PROVIDERS: Emergency Medicine
DX: F32.9 Major depressive disorder, single episode, unspecified (principal); E11.9 Type 2 diabetes mellitus without complications; I11.0 Hypertensive heart disease with heart failure; I50.9 Heart failure, unspecified; Z59.9 Problem related to housing and economic circumstances, unspecified; Z95.2 Presence of prosthetic heart valve; Z88.6 Allergy status to analgesic agent
CPT/HCPCS: 71020; 80048; 85027; 99281; 99283

== ENCOUNTER 2016-11-13 13:18 | Inpatient (IN) | payer OTHER ==
[~2016-11-13] VITALS: Ht 152.4 cm; Wt 93.3 kg
[2016-11-13 14:08] LABS: ADD MIUA? YES; BILIRUBIN NEGATIVE; BLOOD NEGATIVE; COLOR YELLOW ((YELLOW)); GLUCOSE (STRIP) >=500; KETONES 5; LEUKOCYTES NEGATIVE; NITRITE NEGATIVE; PROTEIN (STRIP) 100; SPECIFIC GRAVITY 1.018 (1.000-1.030)
[2016-11-13 14:10] LABS: BACTERIA NONE SEEN /HPF; EPITHELIAL CELLS RARE /HPF; MUCUS TRACE /LPF; RED BLOOD CELLS 0-5 /HPF (0-5); UCUL ADDED? NO; WHITE BLOOD CELLS 0-5 /HPF (0-5)
[2016-11-13 14:29] LABS: HEMATOCRIT 41.6 % (36.0-46.0); MCH 30.5 PG (29.0-34.0); MCHC 32.2 G/DL (30.0-36.0); MCV 94.5 FL (83-99); MEAN PLAT.VOLUME 11.2 uM^3 (9.5-12.4); PLATELET COUNT 195 K/uL (156-360); RBC DIS.WIDTH-CV 13.7 % (11.8-14.6); RBC DIS.WIDTH-SD 47.7 % (39-53); WHITE BLOOD COUNT 12.6 K/uL (4.1-10.2)
[2016-11-13 14:40] LABS: CHLORIDE 96 mEq/L (99-109); POTASSIUM 4.2 mEq/L (3.7-5.4); SODIUM 141 mEq/L (136-147)
[2016-11-13 14:44] LABS: ANION GAP 12 MEQ/L (2-14)
[2016-11-13 14:46] LABS: GFR ESTIMATE (CALCULATED) 40 mL/min/
[2016-11-13 14:47] LABS: UREA NITROGEN (BUN) 20 mg/dL (9-23)
[2016-11-13 14:48] LABS: CREATINE KINASE 98 IU/L (1-294)
[2016-11-13 14:49] LABS: GLUCOSE 430 mg/dL (70-99)
[2016-11-13 19:15] LABS: POINT-OF-CARE METER ID UU13113702
[2016-11-13 20:36] LABS: POINT-OF-CARE METER ID UU13113702; POINT-OF-CARE USER ID PUTMLD10
[2016-11-13 23:58] LABS: CARBON DIOXIDE (BICARBONATE) 36.4 MEQ/L (20-31)
[2016-11-14 00:38] LABS: CHLORIDE 97 mEq/L (99-109); POTASSIUM 4.3 mEq/L (3.7-5.4); SODIUM 136 mEq/L (136-147)
[2016-11-14 00:39] LABS: MAGNESIUM 1.6 mg/dL (1.3-2.7)
[2016-11-14 00:41] LABS: GLUCOSE 363 mg/dL (70-99)
[2016-11-14 00:42] LABS: ANION GAP 12 MEQ/L (2-14)
[2016-11-14 00:43] LABS: TOTAL BILIRUBIN 1.8 mg/dL (0.0-1.0)
[2016-11-14 00:44] LABS: ALKALINE PHOSPHATASE 90 IU/L (3-129)
[2016-11-14 00:45] LABS: GFR ESTIMATE (CALCULATED) 44 mL/min/
[2016-11-14 00:46] LABS: UREA NITROGEN (BUN) 21 mg/dL (9-23)
[2016-11-14 01:11] VITALS: BP 136/79
[2016-11-14 03:41] VITALS: BP 135/75
[2016-11-14 07:26] LABS: ANION GAP 9 MEQ/L (2-14); CHLORIDE 98 MEQ/L (99-109); GFR ESTIMATE (CALCULATED) 53 mL/min/; GLUCOSE 254 mg/dL (70-99); MAGNESIUM 1.7 mg/dl (1.3-2.7); POTASSIUM 4.3 MEQ/L (3.7-5.4); SAMPLE HEMOLYSIS CHECK 0; SAMPLE ICTERIC CHECK 0; SAMPLE LIPEMIA CHECK 0; SODIUM 135 MEQ/L (136-147); UREA NITROGEN (BUN) 22 mg/dL (9-23)
[2016-11-14 11:43] VITALS: BP 128/60
[2016-11-14 11:52] LABS: Estimated Average Glucose 232 mg/dL (70-123); HEMOGLOBIN A1c (GLYCOHEMOGLOB) 9.7 % HGB (Below 5.7)
[2016-11-14 12:01] LABS: BASE EXCESS 6.6 mEq/L (-3 to +3); BICARBONATE 31.3 mEq/L (22-26); CARBOXY HGB 2.8 % (0-5); METHEMOGLOBIN 1.4 % (0-1.5); PCO2 44 mm Hg (35-45); PO2 81 mm Hg (80-100)
[2016-11-14 12:02] LABS: COMMENTS - BLOOD GASES A+C+; DEVICE NC; O2 FLOW 2 L/MIN; SITE RR; TOTAL RESP RATE 16 resp/min; pH 7.46 (7.35-7.45)
[2016-11-14 12:34] LABS: POINT-OF-CARE METER ID UU13113700
[2016-11-14 15:08] VITALS: BP 130/78
[2016-11-14 16:48] LABS: POINT-OF-CARE METER ID UU14188577
[2016-11-14 20:43] VITALS: BP 110/62
[2016-11-15 00:07] VITALS: BP 115/77
[2016-11-15 06:58] LABS: BASOPHIL COUNT 0.1 K/uL (0-0.1); EOSINOPHIL (%) 2.6 % (0-5); EOSINOPHIL COUNT 0.4 K/uL (0-0.3); HEMATOCRIT 42.6 % (36.0-46.0); IMMATURE GRANULOCYTE (%) 0.5 % (0.0-0.7); IMMATURE GRANULOCYTE COUNT 0.1 K/uL; INSTRUMENT ABS NEUTROPHIL CT 10.5 K/uL; LYMPHOCYTE COUNT 1.8 K/uL (1.0-2.8); MCH 30.3 PG (29.0-34.0); MCHC 31.7 G/DL (30.0-36.0); MCV 95.7 FL (83-99); MONOCYTE (%) 6.6 % (3-12); MONOCYTE COUNT 0.9 K/uL (0-0.8); NEUTROPHIL (%) 76.7 % (45-76); NEUTROPHIL COUNT 10.5 K/uL (1.8-6.4); PLATELET COUNT 230 K/uL (156-360); RBC DIS.WIDTH-CV 13.7 % (11.8-14.6); RBC DIS.WIDTH-SD 48.7 % (39-53); RED BLOOD COUNT 4.45 M/uL (3.80-5.20); WHITE BLOOD COUNT 13.7 K/uL (4.1-10.2)
[2016-11-15 07:21] LABS: POINT-OF-CARE METER ID UU14188577
[2016-11-15 07:25] LABS: ALKALINE PHOSPHATASE 86 IU/L (3-129); ANION GAP 8 MEQ/L (2-14); CHLORIDE 100 MEQ/L (99-109); GFR ESTIMATE (CALCULATED) 40 mL/min/; POTASSIUM 3.8 MEQ/L (3.7-5.4); SAMPLE HEMOLYSIS CHECK 0; SAMPLE ICTERIC CHECK 0; SAMPLE LIPEMIA CHECK 0; SODIUM 138 MEQ/L (136-147); UREA NITROGEN (BUN) 25 mg/dL (9-23)
[2016-11-15 07:28] LABS: GLUCOSE 71 mg/dL (70-99)
[2016-11-15 08:19] VITALS: BP 139/62
[2016-11-15 12:00] VITALS: BP 143/69
[2016-11-15 16:44] VITALS: BP 133/64
[2016-11-15 19:59] VITALS: BP 118/57
[2016-11-15 21:42] LABS: POINT-OF-CARE METER ID UU14188577
[2016-11-15 23:28] VITALS: BP 139/62
[2016-11-16 06:24] LABS: POINT-OF-CARE METER ID UU14188577
[2016-11-16 08:00] VITALS: BP 137/76
[2016-11-16 11:38] LABS: MCH 30.6 PG (29.0-34.0); MCHC 32.2 G/DL (30.0-36.0); MCV 95.1 FL (83-99); MEAN PLAT.VOLUME 10.5 uM^3 (9.5-12.4); PLATELET COUNT 239 K/uL (156-360); RBC DIS.WIDTH-CV 13.7 % (11.8-14.6); RBC DIS.WIDTH-SD 47.9 % (39-53); RED BLOOD COUNT 4.31 M/uL (3.80-5.20); WHITE BLOOD COUNT 13.2 K/uL (4.1-10.2)
[2016-11-16 12:21] VITALS: BP 124/60
[2016-11-16 13:29] LABS: ANION GAP 10 MEQ/L (2-14); CHLORIDE 97 MEQ/L (99-109); GFR ESTIMATE (CALCULATED) 44 mL/min/; SAMPLE HEMOLYSIS CHECK 1; SAMPLE ICTERIC CHECK 0; SAMPLE LIPEMIA CHECK 0; UREA NITROGEN (BUN) 29 mg/dL (9-23)
[2016-11-16 13:34] LABS: GLUCOSE 239 mg/dL (70-99); POTASSIUM 4.8 MEQ/L (3.7-5.4); SODIUM 131 MEQ/L (136-147)
[2016-11-16 14:29] LABS: POTASSIUM 4.7 mEq/L (3.7-5.4)
[2016-11-16 17:28] VITALS: BP 136/71
[2016-11-16 19:53] VITALS: BP 135/79
[2016-11-16 21:51] LABS: POINT-OF-CARE METER ID UU14149397
[2016-11-16 23:28] VITALS: BP 136/70
[2016-11-17 04:54] VITALS: BP 120/67
[2016-11-17 05:35] LABS: BASOPHIL COUNT 0.1 K/uL (0-0.1); EOSINOPHIL (%) 2.6 % (0-5); EOSINOPHIL COUNT 0.3 K/uL (0-0.3); IMMATURE GRANULOCYTE (%) 0.8 % (0.0-0.7); IMMATURE GRANULOCYTE COUNT 0.1 K/uL; INSTRUMENT ABS NEUTROPHIL CT 8.4 K/uL; LYMPHOCYTE COUNT 1.9 K/uL (1.0-2.8); MCH 30.2 PG (29.0-34.0); MCHC 32.2 G/DL (30.0-36.0); MCV 93.8 FL (83-99); MONOCYTE (%) 8.7 % (3-12); NEUTROPHIL (%) 70.8 % (45-76); NEUTROPHIL COUNT 8.4 K/uL (1.8-6.4); PLATELET COUNT 274 K/uL (156-360); RBC DIS.WIDTH-CV 13.8 % (11.8-14.6); RBC DIS.WIDTH-SD 46.4 % (39-53); RED BLOOD COUNT 4.37 M/uL (3.80-5.20); WHITE BLOOD COUNT 11.9 K/uL (4.1-10.2)
[2016-11-17 05:54] LABS: CHLORIDE 101 mEq/L (99-109); POTASSIUM 4.3 mEq/L (3.7-5.4); SODIUM 133 mEq/L (136-147)
[2016-11-17 05:56] LABS: GLUCOSE 230 mg/dL (70-99)
[2016-11-17 05:57] LABS: ANION GAP 9 MEQ/L (2-14)
[2016-11-17 05:58] LABS: TOTAL BILIRUBIN 0.9 mg/dL (0.0-1.0)
[2016-11-17 06:00] LABS: ALKALINE PHOSPHATASE 89 IU/L (3-129); GFR ESTIMATE (CALCULATED) 40 mL/min/
[2016-11-17 06:01] LABS: UREA NITROGEN (BUN) 34 mg/dL (9-23)
[2016-11-17 06:31] LABS: POINT-OF-CARE METER ID UU14149397
[2016-11-17 07:28] VITALS: BP 139/65
[2016-11-17 10:52] VITALS: BP 153/80
[2016-11-17 10:56] LABS: BASE EXCESS 5.6 mEq/L (-3 to +3); BICARBONATE 31.6 mEq/L (22-26); CARBOXY HGB 1.8 % (0-5); COMMENTS - BLOOD GASES NA C+; METHEMOGLOBIN 1.4 % (0-1.5); PCO2 48 mm Hg (35-45); PO2 72 mm Hg (80-100); SITE RR; pH 7.44 (7.35-7.45)
[2016-11-17 10:57] LABS: FI02 0.21 %; TOTAL RESP RATE 14 resp/min
[2016-11-17 16:42] VITALS: BP 184/64
[2016-11-17 17:17] LABS: POINT-OF-CARE METER ID UU14188577
[2016-11-17 19:53] VITALS: BP 131/71
[2016-11-17 21:19] LABS: POINT-OF-CARE METER ID UU14188577
[2016-11-18 00:24] VITALS: BP 139/86
[2016-11-18 03:53] VITALS: BP 133/65
[2016-11-18 04:55] LABS: BASOPHIL COUNT 0.1 K/uL (0-0.1); EOSINOPHIL (%) 1.1 % (0-5); EOSINOPHIL COUNT 0.2 K/uL (0-0.3); HEMATOCRIT 43.5 % (36.0-46.0); IMMATURE GRANULOCYTE (%) 1.3 % (0.0-0.7); IMMATURE GRANULOCYTE COUNT 0.2 K/uL; INSTRUMENT ABS NEUTROPHIL CT 10.3 K/uL; LYMPHOCYTE COUNT 1.5 K/uL (1.0-2.8); MCH 30.8 PG (29.0-34.0); MCHC 32.9 G/DL (30.0-36.0); MCV 93.5 FL (83-99); MEAN PLAT.VOLUME 11.1 uM^3 (9.5-12.4); MONOCYTE COUNT 0.9 K/uL (0-0.8); NEUTROPHIL (%) 78.6 % (45-76); NEUTROPHIL COUNT 10.3 K/uL (1.8-6.4); PLATELET COUNT 296 K/uL (156-360); RBC DIS.WIDTH-CV 13.8 % (11.8-14.6); RBC DIS.WIDTH-SD 46.5 % (39-53); RED BLOOD COUNT 4.65 M/uL (3.80-5.20); WHITE BLOOD COUNT 13.1 K/uL (4.1-10.2)
[2016-11-18 05:17] LABS: CHLORIDE 99 mEq/L (99-109); POTASSIUM 4.9 mEq/L (3.7-5.4); SODIUM 132 mEq/L (136-147)
[2016-11-18 05:31] LABS: GLUCOSE 176 mg/dL (70-99)
[2016-11-18 05:32] LABS: ANION GAP 11 MEQ/L (2-14)
[2016-11-18 05:35] LABS: ALKALINE PHOSPHATASE 101 IU/L (3-129); GFR ESTIMATE (CALCULATED) 40 mL/min/
[2016-11-18 05:36] LABS: UREA NITROGEN (BUN) 36 mg/dL (9-23)
[2016-11-18 06:48] LABS: POINT-OF-CARE METER ID UU14149397
[2016-11-18 08:33] VITALS: BP 151/74
[2016-11-18 11:48] VITALS: BP 126/59
[2016-11-18] MEDS ORDERED: SPIRIVA RESPIMAT4 GM IH (14:48)
[2016-11-18] MEDS ORDERED: LEVEMIR100 UNIT/2 SC (14:50)
[2016-11-18] MEDS ORDERED: TRAMADOL HCL50 MG PO (14:50)
[2016-11-18] MEDS ORDERED: ALPRAZOLAM0.25 M2 PO (14:51)
[2016-11-18 16:33] VITALS: BP 152/66
[2016-11-18 17:05] LABS: POINT-OF-CARE METER ID UU14149397
== END 2016-11-18 18:01 | DRG 638 ==
LOC: EME 13:18 → EDOF 23:35 → 5WEST 23:35 → EDOF 23:35 → 5WEST 11-14 00:37 → 3EAST 11-14 11:03 → 5WEST 11-14 11:03 → 3EAST 11-14 14:50
PROVIDERS: Emergency Medicine; Hospitalist; Internal Medicine; Physician Assistant Medical
DX: E11.65 Type 2 diabetes mellitus with hyperglycemia (principal); Z91.19 Patient's noncompliance with other medical treatment and regimen; E11.22 Type 2 diabetes mellitus with diabetic chronic kidney disease; N18.3 Chronic kidney disease, stage 3 (moderate); I48.2 Chronic atrial fibrillation; J96.10 Chronic respiratory failure, unspecified whether with hypoxia or hypercapnia; J44.9 Chronic obstructive pulmonary disease, unspecified; I27.2 Other secondary pulmonary hypertension; E66.01 Morbid (severe) obesity due to excess calories; Z68.41 Body mass index [BMI] 40.0-44.9, adult; S92.345A Nondisplaced fracture of fourth metatarsal bone, left foot, initial encounter for closed fracture; W18.09XA Striking against other object with subsequent fall, initial encounter; I25.10 Atherosclerotic heart disease of native coronary artery without angina pectoris; I13.0 Hypertensive heart and chronic kidney disease with heart failure and stage 1 through stage 4 chronic kidney disease, or unspecified chronic kidney disease; I50.9 Heart failure, unspecified; K21.9 Gastro-esophageal reflux disease without esophagitis; E11.42 Type 2 diabetes mellitus with diabetic polyneuropathy; E03.9 Hypothyroidism, unspecified; R62.50 Unspecified lack of expected normal physiological development in childhood; I07.1 Rheumatic tricuspid insufficiency; Z95.3 Presence of xenogenic heart valve; Y92.012 Bathroom of single-family (private) house as the place of occurrence of the external cause; M47.9 Spondylosis, unspecified; E78.5 Hyperlipidemia, unspecified; F43.20 Adjustment disorder, unspecified
CPT/HCPCS: 36600; 70450; 71010; 73522; 73560; 73630; 78582; 80048; 80053; 80162; 81003; 82550; 82607; 82746; 82803; 82948; 83036; 83735; 84999; 85025; 85027; 85379; 93005; 93970; 94640; 94640 76; 94760; 94799; 99202; 99281; 99285; A9540; A9567; G0378; J1200; J1815; J3480; J7030; S0028

== ENCOUNTER 2016-12-03 15:18 | Inpatient (IN) | payer OTHER ==
[~2016-12-03] VITALS: Ht 157.5 cm; Wt 103.0 kg
[~2016-12-03 15:18] MED LIST changes: +ALPRAZOLAM0.25 M2 PO; +SPIRIVA RESPIMAT4 GM IH
[2016-12-03 16:33] LABS: HEMATOCRIT 44.9 % (36.0-46.0); MCH 29.8 PG (29.0-34.0); MCHC 32.3 G/DL (30.0-36.0); MCV 92.4 FL (83-99); MEAN PLAT.VOLUME 10.9 uM^3 (9.5-12.4); PLATELET COUNT 209 K/uL (156-360); RBC DIS.WIDTH-CV 14.6 % (11.8-14.6); RBC DIS.WIDTH-SD 48.5 % (39-53); RED BLOOD COUNT 4.86 M/uL (3.80-5.20); WHITE BLOOD COUNT 11.3 K/uL (4.1-10.2)
[2016-12-03 16:52] LABS: CHLORIDE 97 mEq/L (99-109); POTASSIUM 4.3 mEq/L (3.7-5.4); SODIUM 135 mEq/L (136-147)
[2016-12-03 16:54] LABS: GLUCOSE 83 mg/dL (70-99)
[2016-12-03 16:55] LABS: ANION GAP 16 MEQ/L (2-14)
[2016-12-03 16:58] LABS: GFR ESTIMATE (CALCULATED) 27 mL/min/
[2016-12-03 16:59] LABS: UREA NITROGEN (BUN) 46 mg/dL (9-23)
[2016-12-03 17:01] LABS: TROP-I INTERPRETATION NEGATIVE; TROPONIN-I < 0.01 ng/mL (0.0-0.30)
[2016-12-03 18:15] LABS: ADD MIUA? NO; BILIRUBIN NEGATIVE; BLOOD NEGATIVE; COLOR YELLOW ((YELLOW)); GLUCOSE (STRIP) NEGATIVE; KETONES NEGATIVE; LEUKOCYTES NEGATIVE; NITRITE NEGATIVE; PROTEIN (STRIP) NEGATIVE; SPECIFIC GRAVITY 1.014 (1.000-1.030); UCUL ADDED? NO; UROBILINOGEN 0.2 MG/DL (0.2-1.0)
[2016-12-03 21:20] LABS: INFLUENZA A VIRAL ANTIGEN NEGATIVE; INFLUENZA B VIRAL ANTIGEN NEGATIVE
[2016-12-03 21:54] LABS: CREATININE 1.2 mg/dL (0.6-1.3); POTASSIUM 4.1 mEq/L (3.7-5.4)
[2016-12-03 22:17] LABS: BASE EXCESS -7.9 mEq/L (-3 to +3); BICARBONATE 17.7 mEq/L (22-26); CARBOXY HGB 2.3 % (0-5); COMMENTS - BLOOD GASES C+; DEVICE AMBO BAG; FI02 100 %; METHEMOGLOBIN 0.9 % (0-1.5); PCO2 36 mm Hg (35-45); PO2 192 mm Hg (80-100); SITE LEFT FEMRAL ALINE
[2016-12-03 22:26] LABS: BASE EXCESS -6.9 mEq/L (-3 to +3); BICARBONATE 16.8 mEq/L (22-26); CARBOXY HGB 2.1 % (0-5); COMMENTS - BLOOD GASES C+; DEVICE AMBU; FI02 100 %; METHEMOGLOBIN 0.8 % (0-1.5); PCO2 29 mm Hg (35-45); PEEP 10 CM/H20; PO2 317 mm Hg (80-100); SITE ALINE; pH 7.37 (7.35-7.45)
[2016-12-03] MEDS ORDERED: BAYER CHEWABLE81 MG PO (22:57)
[2016-12-03] MEDS ORDERED: LEVEMIR FL100 UNIT/1 SC (22:59)
[2016-12-03] MEDS ORDERED: ZYRTEC10 M3 PO (23:00)
[2016-12-03] MEDS ORDERED: PROTONIX20 MG PO (23:00)
[2016-12-03] MEDS ORDERED: ACETAMINOPHEN325 M1 PO (23:01)
[2016-12-03] MEDS ORDERED: EXTRA STRENGTH500 M1 PO (23:02)
[2016-12-03] MEDS ORDERED: TUMS500 MG PO (23:03)
[2016-12-03] MEDS ORDERED: ENEMA133 M2 PR (23:04)
[2016-12-03 23:48] LABS: TROP-I INTERPRETATION NEGATIVE; TROPONIN-I < 0.01 ng/mL (0.0-0.30)
[2016-12-03 23:52] LABS: BASE EXCESS -9.2 mEq/L (-3 to +3); BICARBONATE 18.4 mEq/L (22-26); CARBOXY HGB 2.1 % (0-5); COMMENTS - BLOOD GASES C+; DEVICE VENT; FI02 100 %; MECHANICAL RATE 18 resp/min; METHEMOGLOBIN 0.6 % (0-1.5); MODE A/C; PCO2 45 mm Hg (35-45); PO2 63 mm Hg (80-100); SITE LF ALINE; TOTAL RESP RATE 18 resp/min; pH 7.22 (7.35-7.45)
[2016-12-03 23:53] LABS: PEEP 5 CM/H20; TIDAL VOLUME 400 ML
[2016-12-04 00:35] VITALS: BP 123/80
[2016-12-04 00:45] VITALS: BP 123/80
[2016-12-04 02:16] LABS: METH RESISTANT S AUREUS PCR NEGATIVE (NEGATIVE); PROBE CHECK PASS; SPECIMEN PROCESSING CONTROL PASS
[2016-12-04 04:00] VITALS: BP 97/72
[2016-12-04 05:29] LABS: INTER. NORMALIZED RATIO 2.5; PROTHROMBIN TIME 26.1 (9.2-11.2); PTT 50.9 (25-32)
[2016-12-04 05:30] LABS: EOSINOPHIL (%) 0.1 % (0-5); HEMATOCRIT 38.8 % (36.0-46.0); IMMATURE GRANULOCYTE (%) 0.6 % (0.0-0.7); IMMATURE GRANULOCYTE COUNT 0.2 K/uL; INSTRUMENT ABS NEUTROPHIL CT 21.9 K/uL; LYMPHOCYTE COUNT 1.8 K/uL (1.0-2.8); MCH 30.2 PG (29.0-34.0); MCHC 32.2 G/DL (30.0-36.0); MCV 93.7 FL (83-99); MEAN PLAT.VOLUME 11.1 uM^3 (9.5-12.4); MONOCYTE (%) 6.5 % (3-12); MONOCYTE COUNT 1.7 K/uL (0-0.8); NEUTROPHIL (%) 85.7 % (45-76); NEUTROPHIL COUNT 21.9 K/uL (1.8-6.4); NRBC (%) 0.1 /100 WBC (0-0); PLATELET COUNT 194 K/uL (156-360); RBC DIS.WIDTH-CV 14.7 % (11.8-14.6); RBC DIS.WIDTH-SD 49.7 % (39-53); RED BLOOD COUNT 4.14 M/uL (3.80-5.20)
[2016-12-04 05:31] LABS: WHITE BLOOD COUNT 25.5 K/uL (4.1-10.2)
[2016-12-04 05:38] LABS: TROP-I INTERPRETATION NEGATIVE; TROPONIN-I 0.06 ng/mL (0.0-0.30)
[2016-12-04 05:49] LABS: ALKALINE PHOSPHATASE 117 IU/L (3-129); ANION GAP 16 MEQ/L (2-14); CHLORIDE 100 MEQ/L (99-109); DIRECT BILIRUBIN 0.5 mg/dL (0.0-0.3); GFR ESTIMATE (CALCULATED) 24 mL/min/; POTASSIUM 3.9 MEQ/L (3.7-5.4); SAMPLE HEMOLYSIS CHECK 0; SAMPLE ICTERIC CHECK 0; SAMPLE LIPEMIA CHECK 0; SODIUM 136 MEQ/L (136-147); TOTAL BILIRUBIN 1.3 MG/DL (0.0-1.0); UREA NITROGEN (BUN) 51 mg/dL (9-23)
[2016-12-04 05:50] LABS: GLUCOSE 47 mg/dL (70-99)
[2016-12-04 06:55] VITALS: BP 111/32
[2016-12-04 07:00] VITALS: BP 111/32
[2016-12-04 08:00] VITALS: BP 89/63
[2016-12-04 08:05] LABS: INTERNAL CONTROL VALID? YES
== END 2016-12-04 13:11 | DRG 987 ==
LOC: EME 15:18 → EDOF 19:53 → 4WEST 19:53 → EDOF 19:53 → 4WEST 23:16 → EDOF 23:39 → 4WEST 23:39
PROVIDERS: Emergency Medicine; Internal Medicine; Surgery
PROC: 04HY32Z Insertion of Monitoring Device into Lower Artery, Percutaneous Approach (ICD-10-PCS; principal; 2016-12-03)
PROC: 5A1935Z Respiratory Ventilation, Less than 24 Consecutive Hours (ICD-10-PCS; 2016-12-04)
PROC: 0DJD8ZZ Inspection of Lower Intestinal Tract, Via Natural or Artificial Opening Endoscopic (ICD-10-PCS; 2016-12-04)
PROC: 05H633Z Insertion of Infusion Device into Left Subclavian Vein, Percutaneous Approach (ICD-10-PCS; 2016-12-04)
PROC: 06BY4ZC Excision of Hemorrhoidal Plexus, Percutaneous Endoscopic Approach (ICD-10-PCS; 2016-12-04)
PROC: 0BH17EZ Insertion of Endotracheal Airway into Trachea, Via Natural or Artificial Opening (ICD-10-PCS; 2016-12-04)
PROC: 5A12012 Performance of Cardiac Output, Single, Manual (ICD-10-PCS; 2016-12-04)
DX: I50.9 Heart failure, unspecified (principal); I46.9 Cardiac arrest, cause unspecified; J18.9 Pneumonia, unspecified organism; I48.2 Chronic atrial fibrillation; I27.2 Other secondary pulmonary hypertension; D62 Acute posthemorrhagic anemia; J44.9 Chronic obstructive pulmonary disease, unspecified; Y92.239 Unspecified place in hospital as the place of occurrence of the external cause; Y93.9 Activity, unspecified; X58.XXXA Exposure to other specified factors, initial encounter; S36.63XA Laceration of rectum, initial encounter; K92.2 Gastrointestinal hemorrhage, unspecified; K64.8 Other hemorrhoids; D68.9 Coagulation defect, unspecified; I12.9 Hypertensive chronic kidney disease with stage 1 through stage 4 chronic kidney disease, or unspecified chronic kidney disease; N18.4 Chronic kidney disease, stage 4 (severe); E11.22 Type 2 diabetes mellitus with diabetic chronic kidney disease; I25.10 Atherosclerotic heart disease of native coronary artery without angina pectoris; R63.5 Abnormal weight gain; M48.06 Spinal stenosis, lumbar region; I10 Essential (primary) hypertension; E78.5 Hyperlipidemia, unspecified; K21.9 Gastro-esophageal reflux disease without esophagitis; Y95 Nosocomial condition; Z99.81 Dependence on supplemental oxygen; Z95.2 Presence of prosthetic heart valve; Z79.01 Long term (current) use of anticoagulants; Z95.3 Presence of xenogenic heart valve
CPT/HCPCS: 36600; 71010; 71020; 71275; 74176; 80047; 80048; 80053; 81003; 82248; 82803; 82948; 83605; 83880; 84484; 85025; 85027; 85610; 85730; 87040; 87070; 87205; 87449; 87502; 87641; 93005; 93306; 94002; 94640; 99202; 99281; 99285; C9113; J0171; J0456; J0461; J1250; J1815; J2543; J2704; J7050; P9047